=== PATIENT | female | born 1960 | race Asian ===

== ENCOUNTER 2018-07-16 13:35 | Outpatient (CLI) | payer OTHER ==
--- NOTE | 2018-07-16 14:27 | BD ---
DEXA BONE DENSITY SCAN: DATE: 07/16/2018. COMPARISON: 05/02/2017. HISTORY: Osteoporosis, postmenopausal female. FINDINGS: Lumbar Spine: BMD (g/cm2) L1 0.852 T-Score: -1.3, previous -1.2 L2 0.801 T-Score: -2.1, previous -1.2 L3 0.854 T-Score: -2.1, previous -1.7 L4 0.850 T-Score: -1.9, previous -2.0 L1-L4 0.840 T-Score: -1.9, previous -1.5 Femoral Neck: 0.677 T-Score: -0.7, previous -0.5 Total Femur: 1.059 T-Score: 1.0, previous 0.2 The FRAX-WHO fracture risk assessment tool reports a 10-year fracture risk in an untreated patient in an untreated patient of 13% for a major osteoporotic fracture and 0.3% for a hip fracture. Impression: 1. Osteopenia within the lumbar spine correlating with a moderately increased risk for fracture. 2. Normal femoral neck/proximal bone mineral density. POS: LUIS ANTONIO
== END 2018-07-16 13:36 | disposition home or self-care (01) ==
LOC: BICMAMMO 13:35
PROVIDERS: ATTEND Internal Medicine
DX: Z13.820 Encounter for screening for osteoporosis (principal); M81.0 Age-related osteoporosis without current pathological fracture; M85.88 Other specified disorders of bone density and structure, other site
CPT/HCPCS: 77080

== ENCOUNTER 2019-09-23 10:49 | Outpatient (CLI) | payer OTHER ==
--- NOTE | 2019-09-23 13:19 | BD ---
DEXA BONE DENSITY STUDY: Date: 09/23/2019 HISTORY: Postmenopausal. FINDINGS: Lumbar Spine: BMD (g/cm2) L1 0.817 T-Score: -1.6 L2 0.836 T-Score: -1.7 L3 0.852 T-Score: -2.1 L4 0.880 T-Score: -1.6 Total 0.848 T-Score: -1.8 Left Femoral Neck: 0.765 T-Score: -0.8 Total Femur: 1.005 T-Score: +0.5 IMPRESSION: 1. Normal bone mineral density of the left hip. 2. Osteopenia of the lumbar spine. 3. The 10 year fracture risk for major osteoporotic fracture is 7.4% and hip fracture is 0.2%. These fracture probabilities are calculated for an untreated patient. POS: [facility]
== END 2019-09-23 10:50 | disposition home or self-care (01) ==
LOC: BICMAMMO 10:49
PROVIDERS: ATTEND Internal Medicine Rheumatology
DX: M81.0 Age-related osteoporosis without current pathological fracture (principal); M85.88 Other specified disorders of bone density and structure, other site
CPT/HCPCS: 77080

== ENCOUNTER 2020-01-10 09:49 | Outpatient (CLI) | payer OTHER ==
--- NOTE | 2020-01-10 15:30 | RAD ---
CERVICAL SPINE SEVEN VIEWS: Date: 01-10-2020 Comparison: None History: Cervical spine pain, right arm pain and numbness. FINDINGS: Neutral lateral exam demonstrates disc space narrowing with degenerative endplate change and anterior osteophyte formation at C5-6 and C6-7, and to a lesser degree, C4-5. On the neutral lateral exam, th ere is no anterolisthesis or retrolisthesis. Flexion imaging and extension imaging also demonstrates no anterolisthesis or retrolisthesis. There is no prevertebral soft tissue swelling. Oblique imaging demonstrates osteophyte encroachment on the neural foramina on the right at C5-6 and C6-7 and on the left at C5-6 and C6-7. Open mouth odontoid view demonstrates a normal appearing dens and C1-2 articul ation. IMPRESSION: Multilevel significant mid cervical spine degenerative change, most significant at C5-6 and C6-7. POS: [facility]
== END 2020-01-10 09:50 | disposition home or self-care (01) ==
LOC: BICRAD 09:49
PROVIDERS: ATTEND Internal Medicine Rheumatology
DX: M54.2 Cervicalgia (principal); M47.812 Spondylosis without myelopathy or radiculopathy, cervical region
CPT/HCPCS: 72052

== ENCOUNTER 2021-07-12 08:32 | Outpatient (CLI) | payer OTHER | END 2021-07-12 08:33 | disposition home or self-care (01) | LOC: BICMAMMO 08:32 | PROVIDERS: ATTEND Internal Medicine Rheumatology | DX: Z12.31 Encounter for screening mammogram for malignant neoplasm of breast (principal); M81.0 Age-related osteoporosis without current pathological fracture; M85.89 Other specified disorders of bone density and structure, multiple sites; Z91.89 Other specified personal risk factors, not elsewhere classified; Z98.82 Breast implant status | CPT/HCPCS: 77063; 77067; 77080 ==

== ENCOUNTER 2022-05-15 10:51 | Observation (INO) | payer OTHER ==
[2022-05-15] MEDS ORDERED: Ondansetron PF 4 MG/2 ML Vial ONE (11:33)
[2022-05-15 11:49] LABS: #Eosinphils 0.1 thou/uL (0.0-0.7); #Lymphocytes 1.7 thou/uL (1.20-3.40); #Monocytes 0.4 thou/uL (0.11-0.59); #Neutrophils 2.9 thou/uL (1.40-6.50); %Basophils 0.6 % (0.0-1.0); %Eosinophils 1.1 % (0.0-10.0); %Lymphocytes 32.9 % (21.0-51.0); %Monocytes 8.2 % (0.0-10.0); %Neutrophils 57.3 % (42.0-75.0); Hemoglobin 13.1 g/dL (12.0-16.0); Mean Corpuscular HGB CONC 32.5 g/dL (32.0-36.0); Mean Corpuscular Volume 92.3 fL (78.0-98.0); Mean Platelet Volume 8.1 fL (7.4-10.4); Platelet Count 212 thou/uL (130-400); RBC Distribution Width 12.2 % (11.5-14.5); Red Blood Cell (RBC) Count 4.37 mill/uL (4.20-5.40); White Blood Cell (WBC) Count 5.1 thou/uL (4.8-10.8)
[2022-05-15 12:08] LABS: ALT (SGPT) 19 U/L (8-55); AST (SGOT) 23 U/L (5-34); Albumin 4.4 g/dL (3.4-4.8); Alkaline Phosphatase 69 U/L (40-110); Anion Gap 19 mmol/L (10-20); BUN (Urea Nitrogen) 11 mg/dL (9.8-20.1); Bilirubin, Total 0.7 mg/dL (0.2-1.2); Calc. Creatinine Clearance 0 mL/min (70-130); Calcium 9.5 mg/dL (7.8-10.44); Carbon Dioxide 16 mmol/L (23-31); Chloride 106 mmol/L (98-107); Estimated GFR 85; Globulin 2.6 g/dL (2.4-3.5); Glucose 121 mg/dL (80-115); Potassium 4.2 mmol/L (3.5-5.1); Sodium 137 mmol/L (136-145)
[2022-05-15] MEDS ORDERED: Morphine 4 MG/ML VIAL ONE (13:33)
[2022-05-15] MEDS ORDERED: Dextrose 5% in Water 1,000 ML IV PRN (14:27)
[2022-05-15] MEDS ORDERED: HumaLOG 300 UNITS/3 ML VIAL SC PRN ×2 (14:27)
[2022-05-15] MEDS ORDERED: Dextrose 50% Abboject 50 ML SYRINGE SLOW IVP PRN (14:27)
[2022-05-15] MEDS ORDERED: Senokot S 8.6-50 MG TAB PO PRN (14:32)
[2022-05-15 15:05] LABS: Magnesium 1.8 mg/dL (1.6-2.6)
[2022-05-15 15:07] LABS: Troponin I Less than 0.010 ng/mL (< 0.028)
[2022-05-15] MEDS ORDERED: Aspirin 325 MG TAB PO SCH (15:33)
[2022-05-15] MEDS: Sodium Chloride 0.9% 1,000 ML IV SCH (15:41)
[2022-05-15 16:05] LABS: Hemoglobin A1c 6.4 % (4.0-6.0)
[2022-05-15] MEDS ORDERED: Aspirin 325 MG TAB ONE (17:27)
[2022-05-15 21:57] VITALS: BMI 22.4
[2022-05-15 23:14] LABS: Bacteria/HPF None Seen HPF (None Seen); Bilirubin Negative (Negative); Blood, Urine Negative (Negative); Clarity Clear (Clear); Glucose, Urine (Dipstick) Normal (Negative); Ketone, Urine 60 mg/dL (Negative); Leukocyte Negative Leu/uL (Negative); Nitrite Negative (Negative); Protein, Urine (Dipstick) Negative (Neg-Trace); RBC/HPF 0-3 HPF (0-3); Specific Gravity, Urine 1.019 (1.002-1.036); Squamous Epithelial 0-3 HPF (0-3); Urobilinogen Normal mg/dL (Less than 2)
[2022-05-15 23:33] LABS: Urine Culture Reflex Yes Yes
[2022-05-15] MEDS ORDERED: Electrolyte Replacement Protocol 1 EACH FS SCH (23:45)
[2022-05-15] MEDS ORDERED: Magnesium 2 GM/50 ML(in water) 2 GM in Premix Bag 1 BAG IVPB SCH (23:45)
[2022-05-16] MEDS: Acetaminophen 325 MG TAB PO PRN ×2 (00:05→09:20)
[2022-05-16 00:32] LABS: SARS-CoV-2 NAA Rapid Test Not Detected (NotDetected)
[2022-05-16 05:31] LABS: #Lymphocytes 1.9 thou/uL (1.20-3.40); #Monocytes 0.6 thou/uL (0.11-0.59); #Neutrophils 2.2 thou/uL (1.40-6.50); %Basophils 0.4 % (0.0-1.0); %Monocytes 11.7 % (0.0-10.0); %Neutrophils 46.9 % (42.0-75.0); Hemoglobin 10.9 g/dL (12.0-16.0); Mean Corpuscular HGB CONC 32.1 g/dL (32.0-36.0); Mean Corpuscular Hemoglobin 29.7 pg (27.0-31.0); Mean Corpuscular Volume 92.5 fL (78.0-98.0); Mean Platelet Volume 7.9 fL (7.4-10.4); Platelet Count 207 thou/uL (130-400); RBC Distribution Width 12.1 % (11.5-14.5); Red Blood Cell (RBC) Count 3.67 mill/uL (4.20-5.40); White Blood Cell (WBC) Count 4.7 thou/uL (4.8-10.8)
[2022-05-16] MEDS: Sodium Chloride 0.9% 1,000 ML IV SCH (05:32)
[2022-05-16 05:49] LABS: Anion Gap 9 mmol/L (10-20); BUN (Urea Nitrogen) 8 mg/dL (9.8-20.1); Calc. Creatinine Clearance 76 mL/min (70-130); Calcium 8.5 mg/dL (7.8-10.44); Carbon Dioxide 26 mmol/L (23-31); Chloride 107 mmol/L (98-107); Estimated GFR 94; Glucose 119 mg/dL (80-115); Magnesium 2.3 mg/dL (1.6-2.6); Sodium 138 mmol/L (136-145)
[2022-05-16] MEDS ORDERED: Aspirin 81 mg Enteric Coated Tablet PO SCH (09:00)
[2022-05-16] MEDS ORDERED: metFORMIN 500 MG TAB PO SCH ×2 (10:30→17:00)
[2022-05-16 16:11] VITALS: BP 134/81; TEMP 97.2
[2022-05-16] MEDS ORDERED: Lisinopril 2.5 MG TAB PO SCH (21:00)
[2022-05-16] MEDS ORDERED: Rosuvastatin 5 MG TAB PO SCH (21:00)
[2022-05-17] MEDS ORDERED: Calcium Carbonate 500 MG TAB PO SCH (09:00)
[2022-05-17] MEDS ORDERED: Loratadine 10 MG TAB PO SCH (09:00)
== END 2022-05-16 16:05 | disposition home or self-care (01) ==
LOC: ERS 10:51 → ERHOLD 13:33 → NEURO 18:10
PROVIDERS: ADMIT Internal Medicine; ATTEND Internal Medicine
DX: R55 Syncope and collapse (principal); R41.82 Altered mental status, unspecified; S00.03XA Contusion of scalp, initial encounter; E11.9 Type 2 diabetes mellitus without complications; E78.5 Hyperlipidemia, unspecified; I10 Essential (primary) hypertension; I45.10 Unspecified right bundle-branch block; K21.9 Gastro-esophageal reflux disease without esophagitis; J45.909 Unspecified asthma, uncomplicated; M50.322 Other cervical disc degeneration at C5-C6 level; M48.02 Spinal stenosis, cervical region; I08.1 Rheumatic disorders of both mitral and tricuspid valves; Z79.84 Long term (current) use of oral hypoglycemic drugs; Z79.85 Long-term (current) use of injectable non-insulin antidiabetic drugs; Z79.899 Other long term (current) drug therapy; Z20.822 Contact with and (suspected) exposure to COVID-19; W18.30XA Fall on same level, unspecified, initial encounter; Y92.002 Bathroom of unspecified non-institutional (private) residence as the place of occurrence of the external cause
CPT/HCPCS: 36415; 36416; 70450; 70551; 71045; 72125; 80048; 80053; 81001; 83036; 83735; 84484; 85025; 87086; 93005; 93306; 93880; 94760; 96374; 96375; G0378; J1815; J2270; J2405; J3475; J7050